=== PATIENT | male | born 1960 | race Caucasian/White ===

== ENCOUNTER 2023-07-10 09:37 | Emergency (ER) | payer MEDICARE, MEDICAID ==
[~2023-07-10] VITALS: Ht 182.9 cm; Wt 127.0 kg
[2023-07-10 10:04] VITALS: BP 135/81
[2023-07-10 10:30] VITALS: BP 119/87
[2023-07-10 11:00] VITALS: BP 128/84
[2023-07-10] MEDS ORDERED: AMOX/K CLAV875 M1 PO (11:00)
[2023-07-10] MEDS ORDERED: ZPAK PO (11:00)
[2023-07-10 11:06] VITALS: BP 128/84
== END 2023-07-10 11:30 | disposition home or self-care (01) ==
LOC: ED 09:37
DX: J06.9 Acute upper respiratory infection, unspecified (principal); Z20.822 Contact with and (suspected) exposure to COVID-19